=== PATIENT | female | born 1995 | race Caucasian/White ===

== ENCOUNTER 2018-06-15 18:54 | Emergency (ER) | payer OTHER ==
--- NOTE | 2018-06-15 18:59 | UC ---
Throat Pain/Nasal Pelon HPI - HPI Summary HPI Summary: 22 yo female presents with sinus pain/pressure/congestion and post nasal drip for the last 5 days. She has been taking tylenol cold and sinus OTC with no relief of her symptoms. She says she gets a sinus infection around this time every year. Denies fever, chills, cough, rash. - History of Current Complaint Stated Complaint: SORE THROAT Time Seen by Provider: 06/15/18 18:59 Hx Obtained From: Patient Hx Last Menstrual Period: ~3 WEEKS AGO Onset/Duration: Gradual Onset Severity: Moderate Pain Intensity: 7 Pain Scale Used: 0-10 Numeric - Allergies/Home Medications Allergies/Adverse Reactions: Allergies Allergy/AdvReac Type Severity Reaction Status Date / Time No Known Allergies Allergy Verified 03/13/13 15:52 Home Medications: Home Medications Guaifen/Phenyleph/Acetaminophn [Tylenol Sinus Severe Caplet] 06/15/18 [History] Norgestimate-Ethinyl Estradiol [Ortho-Cyclen 28 Tablet] 06/15/18 [History] PMH/Surg Hx/FS Hx/Imm Hx - Additional Past Medical History Additional PMH: None - Surgical History Surgical History: None Surgery Procedure, Year, and Place: LEFT ELBOW - Family History Known Family History: Positive: None - Social History Occupation: Student Lives: With Family Alcohol Use: None Substance Use Type: None Smoking Status (MU): Never Smoked Tobacco - Immunization History Most Recent Influenza Vaccination: n/a Most Recent Pneumonia Vaccination: n/a Vaccination Up to Date: Yes Review of Systems All Other Systems Reviewed And Are Negative: Yes Constitutional: Positive: Negative Skin: Positive: Negative Eyes: Positive: Negative ENT: Positive: Nasal Discharge, Sinus Congestion, Sinus Pain/Tenderness Respiratory: Positive: Negative Cardiovascular: Positive: Negative Gastrointestinal: Positive: Negative Neurovascular: Positive: Negative Neurological: Positive: Negative Psychological: Positive: Negative Physical Exam - Summary Physical Exam Summary: GENERAL: NAD. WDWN. No pain distress. SKIN: No rashes, sores, lesions, or open wounds. HEENT: Head: AT/NC Eyes: EOM intact. Conjunctiva clear without inflammation or discharge. Ears: Hearing grossly normal. TMs intact, no bulging, erythema, or edema. Nose: Nasal mucosa mildly swollen and erythematous with yellow/ clear discharge. TTP maxillary and frontal sinus. Positive post nasal drip Throat: Posterior oropharynx without exudates, erythema, or tonsillar enlargement. Uvula midline. NECK: Supple. Nontender. No lymphadenopathy. CHEST: CTAB. No r/r/w. No accessory muscle use. Breathing comfortably and in no distress. CV: RRR. Without m/r/g. Pulses intact. NEURO: Alert. PSYCH: Age appropriate behavior. Triage Information Reviewed: Yes Vital Signs: Vital Signs: Temp Pulse Resp BP Pulse Ox 98.2 F 100 16 116/88 100 06/15/18 19:02 06/15/18 19:02 06/15/18 19:02 06/15/18 19:02 06/15/18 19:02 Vital Signs Reviewed: Yes Throat Pain/Nasal Course/Dx - Course Course Of Treatment: Sinusitis - Differential Dx/Diagnosis Provider Diagnosis: Sinusitis Discharge - Sign-Out/Discharge Documenting (check all that apply): Patient Departure All imaging exams completed and their final reports reviewed: No Studies - Discharge Plan Condition: Stable Disposition: HOME Prescriptions: Amoxicillin PO (*) [Amoxicillin 875 MG (*)] 875 mg PO BID #14 tab Patient Education Materials: Sinusitis (ED) Referrals: Marialuisa Rankin MD [Primary Care Provider] - Additional Instructions: If you develop a fever, shortness of breath, chest pain, new or worsening symptoms - please call your PCP or go to the ED. - Billing Disposition and Condition Condition: STABLE Disposition: Home - Attestation Statements Provider Attestation: I was available for consult. This patient was seen by the ERICKSON. The patient was not presented to , seen by or examined by wy -Narcisa Otto MD
[2018-06-15 19:09] VITALS: BP 116/88
[2018-06-15] MEDS ORDERED: Amoxicillin PO (*) 500 MG CAP PO ONE (19:15)
== END 2018-06-15 19:24 | disposition home or self-care (01) ==
LOC: UCEAST 18:54
DX: J32.9 Chronic sinusitis, unspecified (principal)
CPT/HCPCS: 99202; A9270-GY; G0463